=== PATIENT | male | born 1965 | race Caucasian/White ===

== ENCOUNTER 2019-01-26 12:56 | Inpatient (IN) ==
--- NOTE | 2019-01-26 16:12 | Emergency Department Note ---
Disposition Clinical Impression: Cellulitis, Osteomyelitis, Elevated serum creatinine Disposition: Admitted As Inpatient Condition: Fair Forms: ED Satisfaction Letter Time of Disposition: 17:11 Extremity Problem HPI - General Chief complaint: ED Extremity Problem,Nontraumatic Stated complaint: Right foot Ulcer Time Seen by Provider: 01/26/19 15:16 Source: patient Limitations: no limitations Nursing Notes Reviewed: Yes Vital Signs Reviewed: Yes - History of Present Illness Pain Scale: 7 - Related Data Previous Rx's Medication Instructions Recorded traMADol [Ultram] 50 mg PO Q8HR PRN #9 tablet 05/21/15 Allergies Allergy/AdvReac Type Severity Reaction Status Date / Time ciprofloxacin [From Cipro] Allergy See Verified 01/26/19 13:47 Comments pioglitazone [From Actos] AdvReac See Verified 01/26/19 13:47 Comments All systems ED: reviewed and negative except as stated. Review of Systems: As Per HPI Past Medical History - Past Medical History Medical history: Reports: diabetes Psychiatric history: Reports: no psych history - Social History Smoking Status: Former smoker Smokeless Tobacco Status: Yes Alcohol use: Reports: none Drug use: Reports: none Physical Exam - General Limitations: no limitations General appearance: alert, in no apparent distress Course Vital Signs Temperature 98.8 F 01/26/19 13:45 Pulse Rate 101 01/26/19 13:45 Respiratory Rate 16 01/26/19 13:45 Blood Pressure 137/86 01/26/19 13:45 O2 Sat by Pulse Oximetry 99 01/26/19 13:45 Temperature 98.8 F 01/26/19 13:47 Pulse Rate 101 01/26/19 13:47 Respiratory Rate 16 01/26/19 13:47 Blood Pressure 137/86 01/26/19 13:47 O2 Sat by Pulse Oximetry 99 01/26/19 13:47 Oxygen Delivery Oxygen Delivery Room Air Extremity Problem, Nontraumati - Lab Data Result diagrams: 01/26/19 16:10 01/26/19 16:10 Lab Results 01/26/19 01/26/19 01/26/19 Range/Units 16:10 16:10 16:10 WBC 9.3 (4.3-11.1) K/mcL RBC 4.73 (4.19-5.50) M/mcL Hgb 14.1 (12.9-16.9) g/dL Hct 42.3 (37.5-50.1) % MCV 89.4 (83.0-100.0) fL MCH 29.8 (28.0-33.3) pg MCHC 33.3 (31.6-35.5) g/dL RDW 12.4 (11.5-14.5) % Plt Count 382 (140-400) K/mcL MPV 10.5 (9.4-12.4) fL Immature Gran % 0.8 (0-4) % Seg Neutrophils % 69.9 % Lymphocytes % 11.7 % Monocytes % 15.5 % Eosinophils % 1.3 % Basophils % 0.8 % Neutrophils # 6.5 (1.6-8.9) K/mcL Lymphocytes # 1.1 (0.6-4.6) K/mcL Monocytes # 1.4 H (0.0-1.3) K/mcL Eosinophils # 0.1 (0.0-0.6) K/mcL Basophils # 0.1 (0.0-0.2) K/mcL ESR 48 H (0-10) mm/hr Sodium 136 (136-145) mEq/L Potassium 4.1 (3.5-5.1) mEq/L Chloride 100 (98-107) mEq/L Carbon Dioxide 26 (23-29) mEq/L BUN 33 H (6-20) mg/dL Creatinine 1.96 H (0.70-1.30) mg/dL Est GFR ( Amer) 44 L (> 60) Est GFR (Non-Af Amer) 36 L (> 60) BUN/Creatinine Ratio 17 (6-26) Glucose 151 H (70-105) mg/dL Calculated Osmolality 292 (280-300) Calcium 9.8 (8.6-10.3) mg/dL C-Reactive Protein 92 H (Less than 10) mg/L Attestation Statement - Attestation Attestation: I have seen this patient with the resident physician, I have personally evaluated this patient. I had reviewed the chart and document dictation by the resident physician and aM in agreement with the information documented by the resident physician. Please see documentation by the resident physician for complete chart including past medical history, family medical history, review of systems, current history and physical and laboratory and imaging studies. I was present for all procedures, provided direct supervision for all procedures, was present for the entirety of all procedures and provided direct guidance during the procedures. Please see documentation by the resident physician for any procedures performed. I have reviewed all interpretations of EKGs, and reviewed all EKGs performed on patient's as well. I have also reviewed reports of imaging as provided by radiology. Patient presented emergency department with chief complaint of increasing right great toe swelling redness and pain with walking. He states he has a chronic ulceration that has been managed by the wound clinic, but he has not seen him in about a month. He states he did miss one appointment with them. He states that he started noticing some redness of the right great toe and of his dorsum of his foot last week on he went to a urgent care, they placed him on doxycycline, he states he seemed to be doing okay and then over the last 24 hours he no significant increasing redness and swelling of the toe with increased pain with walking. He denies fevers or chills he is a diabetic he denies any changes in his blood sugar he denies nausea vomiting polyuria polydipsia. He denies headache neck pain chest pain shortness of breath dizziness or weakness. He denies any acute trauma he reports that he did get a new para shoes a few months ago which he thinks led to the ulceration but nothing new since that time. He denies any acute numbness or weakness but has chronic problems with neuropathy. Patient states he has already had his left great toe amputated for this same problem in the past. On physical examination he is alert oriented 3 and in no acute distress cranial nerves are grossly intact oropharynx is normal lungs are clear heart is regular no tachycardia ear canals are normal no evidence of malignant otitis externa. Abdomen soft nontender. Normal distal pulses in bilateral lower extremities. The right foot compared to the left foot is warm to the touch although there is no generalized pink discoloration there is a delineated area of redness specifically the entire right great toe is circumferentially erythematous, there is a superficial ulceration that almost appears like a plantar wart on the medial aspect of the plantar side, there is circumferential edema of the right great toe, no edema of the foot although the erythema does extend approximately 3 cm proximal to the toe itself over the medial portion of the foot extending to the third digit. There is no erythema of the second third fourth and fifth digits. The toe is mildly tender to palpation, it feels highly indurated, cannot rule out fluctuance but with palpation, I do not express any purulence from the ulceration site. There is no odor to it. There is some slight sloughing of the skin in between the toes that appears more like athlete's foot there is no nuchal ski sign, this is only of superficial portion. There is no evidence of gangrene or necrosis. There is no lymphangitis. Patient had laboratory studies ordered, and a CT of the foot ordered. He is already on doxycycline and has taken that this morning. We will reassess his foot after workup. He was offered pain medication which he declined. Patient's blood work showed no evidence of leukocytosis acute on chronic headache creatinine elevation of 1.96 up from his baseline, is given IV fluids for this elevated CRP at [address] scan showed no abscess but findings concerning for osteomyelitis of the great toe. Podiatry was contacted, patient has already been on doxycycline discussed antibiotic coverage she would like the patient initiated on clindamycin. The patient will be admitted to the hospital, for further management.
[2019-01-26 16:25] LABS: Basophils # 0.1 K/mcL (0.0-0.2); Basophils % 0.8 %; Eosinophils # 0.1 K/mcL (0.0-0.6); Eosinophils % 1.3 %; Hematocrit 42.3 % (37.5-50.1); Hemoglobin 14.1 g/dL (12.9-16.9); Immature Granulocytes % 0.8 % (0-4); Lymphocytes # 1.1 K/mcL (0.6-4.6); Lymphocytes % 11.7 %; Mean Corpuscular HGB Conc 33.3 g/dL (31.6-35.5); Mean Corpuscular Hemoglobin 29.8 pg (28.0-33.3); Mean Corpuscular Volume 89.4 fL (83.0-100.0); Mean Platelet Volume 10.5 fL (9.4-12.4); Monocytes # 1.4 K/mcL (0.0-1.3); Monocytes % 15.5 %; Neutrophils # 6.5 K/mcL (1.6-8.9); Platelet Count 382 K/mcL (140-400); Red Blood Count 4.73 M/mcL (4.19-5.50); Red Cell Distribution Width 12.4 % (11.5-14.5); Segmented Neutrophils % 69.9 %; White Blood Count 9.3 K/mcL (4.3-11.1)
--- NOTE | 2019-01-26 16:36 | Emergency Department Note ---
Disposition Clinical Impression: Cellulitis, Elevated serum creatinine Osteomyelitis Qualifiers: Osteomyelitis type: unspecified type Osteomyelitis location: foot Laterality: right Qualified Code(s): M86.9 - Osteomyelitis, unspecified Disposition: Admitted As Inpatient Condition: Fair Time of Disposition: 17:22 Extremity Problem HPI - General Chief complaint: ED Extremity Problem,Nontraumatic Stated complaint: Right foot Ulcer Time Seen by Provider: 01/26/19 15:16 Source: patient Mode of arrival: ambulatory Limitations: no limitations Nursing Notes Reviewed: Yes Vital Signs Reviewed: Yes - History of Present Illness HPI Narrative: 53M with PMHx of DM and left great toe amp patient presents emergency Department with right great toe infection. Patient states that he developed an ulcer from a blister several months ago on his right great toe and had been seen wound care and podiatry. The wound was initially healing but has gotten worse over the pa st several days. He has been taking doxycycline as an outpatient [facility] today to get checked quickly to look worse and they suggested he may need IV antibiotics. Patient states something similar to this happened when he had his left great toe amputated. He has no other complaints at this time. He denies fever, chills, abdominal pain, nausea and vomiting. He does have pain in the right great toe. Pain Scale: 7 - Related Data Home Medications Medication Instructions Recorded Confirmed BuPROPion SR (12 HR) [Wellbutrin 300 mg PO QAM 01/26/19 01/27/19 SR] Clopidogrel [Plavix] 75 mg PO DAILY 01/26/19 01/27/19 Gemfibrozil 600 mg PO DAILY 01/26/19 01/27/19 Insulin Glargine,Hum.rec.anlog 50 - 60 units SQ QPM 01/26/19 01/27/19 [Basaglar Kwikpen U-100] Losartan [Cozaar] 25 mg PO DAILY 01/26/19 01/27/19 Paroxetine [Paxil] 20 mg PO QAM 01/26/19 01/27/19 Ranitidine HCl [Zantac] 300 mg PO QPM 01/26/19 01/27/19 Rosuvastatin [Crestor] 40 mg PO HS 01/26/19 01/27/19 glyBURIDE [GlyBURIDE] 10 mg PO QAM 01/26/19 01/27/19 Cholecalciferol (Vitamin D3) 1,000 units PO DAILY 01/27/19 01/27/19 [Vitamin D3] Metformin HCl 1,000 mg PO QAM 01/27/19 01/27/19 Blossom-3/Dha/Epa/Fish Oil [Fish Oil 1,500 mg PO DAILY 01/27/19 01/27/19 500 mg Softgel] Previous Rx's Medication Instructions Recorded Doxycycline Hyclate 100 mg PO BID 15 Days #30 tab 01/29/19 Levofloxacin [Levaquin] 750 mg PO DAILY 15 Days #15 tablet 01/29/19 Allergies Allergy/AdvReac Type Severity Reaction Status Date / Time pioglitazone [From Actos] AdvReac See Verified 01/27/19 22:04 Comments All systems ED: reviewed and negative except as stated. Review of Systems: As Per HPI Constitutional: Denies: fever, chills, weakness Cardiovascular: Denies: chest pain, palpitations, dyspnea on exertion Respiratory: Denies: cough, dyspnea, wheezes Gastrointestinal: Denies: abdominal pain, nausea, vomiting Musculoskeletal: Reports: joint swelling (right great toe). Denies: back pain, neck pain Neurological: Denies: headache Endocrine: Denies: fatigue Past Medical History - Past Medical History Attestation: Yes The following information was validated with the patient. Source: patient Medical history: Reports: diabetes Psychiatric history: Reports: no psych history - Social History Smoking Status: Former smoker Smokeless Tobacco Status: Yes Alcohol use: Reports: none Drug use: Reports: none Physical Exam - General Limitations: no limitations General appearance: alert, in no apparent distress - Head Head exam: atraumatic, normocephalic - Eye Eye exam: Present: normal appearance, EOMI - Chest Chest inspection: Present: normal inspection. Absent: tenderness, rash - Respiratory Respiratory exam: Present: normal lung sounds bilaterally. Absent: wheezes - Cardiovascular Cardiovascular exam: Present: regular rate, normal rhythm - Abdominal Exam Abdominal exam: Present: soft, Non-Tender. Absent: distention, guarding, rebound, rigidity - Extremities Exam Extremities exam: Present: other (right great toe swelling with desquamation of tissue over the dorsal aspect. tenderness to palpation with healing ulcer on the medial plantar aspect. No crepitus. Erythema without significant streaking. ) - Neurological Exam Neurological exam: Present: alert, oriented X3 - Psychiatric Psychiatric exam: Present: normal affect, normal mood - Skin Skin exam: Present: warm, dry Course Vital Signs Temperature 98.8 F 01/26/19 13:45 Pulse Rate 101 01/26/19 13:45 Respiratory Rate 16 01/26/19 13:45 Blood Pressure 137/86 01/26/19 13:45 O2 Sat by Pulse Oximetry 99 01/26/19 13:45 Temperature 98.8 F 01/26/19 13:47 Pulse Rate 101 01/26/19 13:47 Respiratory Rate 16 01/26/19 13:47 Blood Pressure 137/86 01/26/19 13:47 O2 Sat by Pulse Oximetry 99 01/26/19 13:47 Oxygen Delivery Oxygen Delivery Room Air Extremity Problem, Nontraumati - MDM Narrative Medical decision making narrative: Patient presents with infection of his right great toe. We will obtain basic labs, ESR, CRP and a CT scan of the patient's foot looking for possible osteomyelitis. 1600 - as patient's lab work was significant for an elevated ESR and CRP. CT scan is suggestive of osteomyelitis and MRI of the foot is requested. We will consult podiatry for help with management of this patient and plan on admitting to the hospitalist. 1626 - Spoke with Dr. Stuart who is requesting the MRI as well as clindamycin. We will obtain these and call the hospitalist for admission. 1700 - Dr. Rivera has accepted the patient for admission. - Medical Records Medical records reviewed: Yes I reviewed the patient's medical records. - Lab Data Lab results reviewed: Yes I reviewed the patient's lab results. Result diagrams: 01/28/19 05:00 01/29/19 04:44 - Radiology Data Radiology results reviewed: Yes I reviewed the patient's radiology results. Attestation Statement - Attestation Attestation: I have seen this patient with the resident physician, I have personally evaluated this patient. I had reviewed the chart and document dictation by the resident physician and aM in agreement with the information documented by the resident physician. Please see documentation by the resident physician for complete chart including past medical history, family medical history, review of systems, current history and physical and laboratory and imaging studies. I was present for all procedures, provided direct supervision for all procedures, was present for the entirety of all procedures and provided direct guidance during the procedures. Please see documentation by the resident physician for any procedures performed. I have reviewed all interpretations of EKGs, and reviewed all EKGs performed on patient's as well. I have also reviewed reports of imaging as provided by radiology.
[2019-01-26 16:43] LABS: Calcium 9.8 mg/dL (8.6-10.3); Potassium 4.1 mEq/L (3.5-5.1)
[2019-01-26] MEDS ORDERED: Clindamycin 600 MG/50 ML 600 MG/50 ML IV.SOLN IVPB STA (16:48)
[2019-01-26] MEDS ORDERED: 0.9 % Sodium Chloride 1,000 ML IVC ONE (16:48)
[2019-01-26] MEDS ORDERED: Naloxone 0.4 MG/ML INJ IVP PRN (17:46)
--- NOTE | 2019-01-26 17:49 | Internal Med History&Physical ---
Date of Encounter: 01/26/19 Time of Encounter: 17:49 Internal Medicine - H&P: HPI Chief complaint: Right toe pain Admitted From: Home Plans for Post Hospital Care: Home History of present illness: Mr. Barth is a 53 year old male with a past medical history of diabetes and left toe amputation presented to the ER today with right toe pain and swelling of about 5 days' duration. Patient states that he has an ulcer on the plantar aspect of his right toe which has been present for about 2 months. He has been following with podiatry as outpatient for the management of the ulcer which discharging initially but stopped about a week ago. Patient states that shortly after he noticed his foot gradually swelling and becoming more painful. He went to urgent care and was given some antibiotics but has not seen any improvement in his condition. He admits fever and chills of about 2 days' duration. Past Med Surg Social Fam HX - Past Medical History Medical history: diabetes Additional medical history: Diabetes Psychiatric history: no psych history - Past Surgical History Additional surgical history: Left toe amputation - Social History Smoking Status: Former smoker Smokeless Tobacco Status: Yes Alcohol use: none Drug use: none - Additional Family History Additional family history: Reviewed and noncontributory Internal Medicine - H&P: Meds BuPROPion SR (12 HR) [Wellbutrin SR] 150 mg PO BID 01/26/19 [History] Clopidogrel [Plavix] 75 mg PO DAILY 01/26/19 [History] Doxycycline 100 mg PO BID 01/26/19 [History] Gemfibrozil 600 mg PO DAILY 01/26/19 [History] Insulin Glargine,Hum.rec.anlog [Basaglar Kwikpen U-100] 50 units SQ DAILY 01/26/19 [History] Losartan [Cozaar] 25 mg PO DAILY 01/26/19 [History] Metformin HCl [Fortamet] 1,000 mg PO DAILY 01/26/19 [History] Paroxetine [Paxil] 20 mg PO DAILY 01/26/19 [History] Ranitidine HCl [Zantac] 300 mg PO DAILY 01/26/19 [History] Rosuvastatin [Crestor] 40 mg PO HS 01/26/19 [History] glyBURIDE [GlyBURIDE] 10 mg PO DAILY 01/26/19 [History] Allergy/AdvReac Type Severity Reaction Status Date / Time ciprofloxacin [From Cipro] Allergy See Verified 01/26/19 17:35 Comments pioglitazone [From Actos] AdvReac See Verified 01/26/19 17:35 Comments All Systems PM: A 10-system review of systems was performed and is negative for pertinent find ings except as documented above in the HPI. Review of systems: GENERAL: Admits fever and chills HEENT: No rhinorrhea, No sore throat, No ear pain or discharge, No dysphagia or odynophagia PULMONARY: No cough, No chest pain, No Sputum production, No dyspnea on exertion CARDIOVASCULAR: No chest pain, no palpitations, No shortness of breath, No PND, No orthopnea GASTROINTESTINAL: No abdominal pain, No nausea, No vomiting, No constipation, No diarrhea, No hematemesis, No hematochezia MUSKULOSKELETAL: Pain in right foot INTEGUMENTARY: No new skin lesions NERVOUS SYSTEM: No Dizziness, No weakness, No slurred speech, No diplopia or blurred/ loss vision, No numbness, No tinglng sensation. - Constitutional Vitals: Temp Pulse Resp BP Pulse Ox 37.1 C 101 16 137/86 99 01/26/19 13:47 01/26/19 13:47 01/26/19 13:47 01/26/19 13:47 01/26/19 13:47 Exam: GENERAL: Not in distress. Alert and Oriented HEENT: EOMI, PERRLA MOUTH: Moist oral mucosa NECK:No JVD, No lymph nodes. CHEST AND LUNGS: Normal breath sounds, no wheezes or crackles HEART: S1 and S2 normal, no murmurs ABDOMEN: Soft, nontender, no organomegaly SKIN: Normal color, no rashes, no lesions EXTREMITIES: Left toe stump is clean, right toe is markedly swollen, red, fluctuant and tender. Ulcer on plantar aspect of right toe is dry and not discharging. NEUROLOGICAL: Normal cognition, normal motor and sensory exam. Internal Med - H&P Results - Labs CBC & Chem 7: 01/26/19 16:10 01/26/19 16:10 Labs: Short CBC 01/26/19 Range/Units 16:10 WBC 9.3 (4.3-11.1) K/mcL Hgb 14.1 (12.9-16.9) g/dL Hct 42.3 (37.5-50.1) % Plt Count 382 (140-400) K/mcL Neutrophils # 6.5 (1.6-8.9) K/mcL BMP 01/26/19 16:10 Sodium 136 Potassium 4.1 Chloride 100 Carbon Dioxide 26 BUN 33 H Creatinine 1.96 H Glucose 151 H Calcium 9.8 - Impressions ITS Impressions Foot CT 01/26/19 16:19 IMPRESSION: 1. Suspected erosive changes along the plantar aspect of the 1st digit possibly representing osteomyelitis. Consider further evaluation with MRI. 2. Shallow soft tissue ulceration along the plantar medial aspect of the 1st digit with 1st digit cellulitis. No definite drainable fluid collection or sinus tract. D/ / Maynor Farias MD / Maynor Farias MD Interpreting Provider: Maynor Farias MD - Assessment and Plan (1) Toe osteomyelitis, right Current Visit: Yes Status: Acute Assessment and plan: Patient witn DM2 and a right hallux ulcer of abut 2 months duration. Right toe has become more swollen and painful in last 5 days with fever and chills CT shows erosive changes on plantar aspect of hallux suspicious for osteommyelitis MRI ordered Renal dosing of antibiotics sice he has CKD 3B Will start on Vanc and Cefepime. Podiatry, ID and Nephro consult (2) Cellulitis of right toe Current Visit: Yes Status: Acute Assessment and plan: Possible OM of right hallux with red, tender and warm surrounding soft tissue. Antibiotics as above (3) Acute kidney injury superimposed on chronic kidney disease Current Visit: Yes Status: Acute Assessment and plan: Creatinine currently elevated at 1.96 Review of patient's previous labs reveals likely CKD3b We will give gentle hydration Consult nephrology Monitor (4) Diabetes mellitus Current Visit: Yes Status: Chronic Assessment and plan: Accuchecks Sliding scale Will cover with home basal insulin dose. Qualifiers: Diabetes mellitus type: type 2 Diabetes mellitus jail insulin use: without exterminator helper use Diabetes mellitus complication status: with skin complications Diabetes mellitus complication detail: with foot ulcer Qualified Code(s): E11.621 - Type 2 diabetes mellitus with foot ulcer; L97.509 - Non-pressure chronic ulcer of other part of unspecified foot with unspecified severity (5) DVT prophylaxis Current Visit: Yes Status: Acute Assessment and plan: Subcutaneous heparin - Time Spent With Patient Total time spent is greater than 50% in coordination of care (as documented) at patient's floor/unit and/or counseling patient:
[2019-01-26] MEDS ORDERED: *HR* Dextrose 50 % in Water (Syg) 50 ML SYRINGE IVP PRN (18:09)
[2019-01-26] MEDS ORDERED: D5% in Water 1,000 ML IVC PRN (18:09)
[2019-01-26] MEDS ORDERED: Dextrose Gel 15 GM/37.5 ML TUBE PO PRN ×2 (18:09)
[2019-01-26] MEDS: Cefepime HCl 2,000 MG in Water for inj. (sterile) 20 ML IVP SCH ×2 (18:59→20:12)
[2019-01-26] MEDS: *HR* Heparin 5,000 UNIT/ML VIAL SQ SCH (20:13)
[2019-01-26] MEDS: BuPROPion SR (12 HR) 150 MG TABLET PO SCH (20:37)
[2019-01-27] MEDS: *HR* Heparin 5,000 UNIT/ML VIAL SQ SCH ×3 (04:45→21:06)
[2019-01-27] MEDS: Cefepime HCl 2,000 MG in Water for inj. (sterile) 20 ML IVP SCH ×2 (04:51→17:36)
[2019-01-27 05:36] LABS: Basophils # 0.1 K/mcL (0.0-0.2); Basophils % 0.7 %; Eosinophils # 0.2 K/mcL (0.0-0.6); Eosinophils % 1.9 %; Hematocrit 40.3 % (37.5-50.1); Hemoglobin 13.4 g/dL (12.9-16.9); Lymphocytes # 1.4 K/mcL (0.6-4.6); Lymphocytes % 13.5 %; Mean Corpuscular HGB Conc 33.3 g/dL (31.6-35.5); Mean Corpuscular Hemoglobin 29.6 pg (28.0-33.3); Mean Platelet Volume 10.5 fL (9.4-12.4); Monocytes # 1.7 K/mcL (0.0-1.3); Monocytes % 16.9 %; Neutrophils # 6.7 K/mcL (1.6-8.9); Platelet Count 364 K/mcL (140-400); Red Blood Count 4.53 M/mcL (4.19-5.50); Red Cell Distribution Width 12.4 % (11.5-14.5); White Blood Count 10.1 K/mcL (4.3-11.1)
[2019-01-27 05:53] LABS: Calcium 9.2 mg/dL (8.6-10.3); Potassium 4.3 mEq/L (3.5-5.1)
[2019-01-27] MEDS: Insulin LISPRO 300 UNITS/3 ML VIAL SQ SCH ×3 (08:47→17:17)
[2019-01-27] MEDS ORDERED: Insulin DETEMIR 100 UNIT/ML X5UNITS SQ SCH (09:00)
[2019-01-27] MEDS ORDERED: NON-FORMULARY MEDICATION 1 EACH EACH (Insulin Glargine,Hum.Rec.Anlog [Basaglar Kwikpen U-1 SQ SCH (09:00)
[2019-01-27] MEDS ORDERED: Famotidine 20 MG TABLET PO SCH (09:00)
[2019-01-27] MEDS: BuPROPion SR (12 HR) 150 MG TABLET PO SCH ×2 (09:00→21:06)
--- NOTE | 2019-01-27 09:48 | Nephrology Consult Note ---
<Lawrence Fishman N - Last Filed: 01/27/19 13:55> Date of Encounter: 01/27/19 Time of Encounter: 09:44 Assessment and Plan (1) Acute kidney injury superimposed on chronic kidney disease Status: Acute On patient's previous admissions he has had a diminished GFR ranging from 40-48. Patient denies having a internal security manager that he follows GFR is slightly reduced from previous admission in 2018 now down to 33 Creatinine/BUN of 2.13 and 38 Diminished renal function could be teleservices representative of progression of underlying CKD since last visit versus Acute on chronic Kidney failure -UA ordered -spot protein/creatinine ratio urine -LEANNE, complements C3 and C4 -Electrophoresis serum and urine -renal dosing of medications -avoid nephrotoxins -Encourage oral intake and renal diet once no longer NPO following surgery (2) Osteomyelitis Status: Acute Podiatry has seen patient and plans for surgery this afternoon Qualifiers: Osteomyelitis type: unspecified type Osteomyelitis location: foot Laterality: right Qualified Code(s): M86.9 - Osteomyelitis, unspecified (3) Diabetes mellitus Status: Chronic Defer to primary team Qualifiers: Diabetes mellitus type: type 2 Diabetes mellitus terminal carman insulin use: without terminal carman use Diabetes mellitus complication status: with skin complications Diabetes mellitus complication detail: with foot ulcer Qualified Code(s): E11.621 - Type 2 diabetes mellitus with foot ulcer; L97.509 - Non-pressure chronic ulcer of other part of unspecified foot with unspecified severity History of Present Illness - Reason for Consult Consult date: 01/27/19 Chronic Kidney Disease - History of Present Illness 53M with significant PMH of diabetes and left great toe amputation presents to the ED complaining of right toe pain and swelling for 5 days prior to arrival. Patient has had a ulceration on this foot for the past couple months which has been managed by podiatry outpatient, but over the past few days the toe has been swelling and became much more painful. Patient also complains of fever and chills. The patient's labs significant for a CRP of 92, ESR 48, and white count of 9.3. On admission creatinine/BUN of 1.96 and 33 something with a GFR of 36 and which are now 2.13 and 38 with GFR of 33. These appear to be worse than patient's baseline on previous admissions with GFR ranging from 40-50. Patient has been seen by podiatry who planned for surgery this afternoon. Past Med Surg Social Fam HX - Past Medical History Medical history: diabetes, hyperlipidemia, hypertension Additional medical history: Diabetes Psychiatric history: no psych history - Past Surgical History Additional surgical history: Left toe amputation - Social History Smoking Status: Former smoker Smokeless Tobacco Status: Yes Alcohol use: none Drug use: none - Family History Mother Living Status: Still Living Hx Family Cancer: Yes Hx Family Endocrine Disorder: Yes Father Living Status: Still Living Hx Family Cardiac Disorders: Yes Medications and Allergies BuPROPion SR (12 HR) [Wellbutrin SR] 300 mg PO QAM 01/26/19 [History] Clopidogrel [Plavix] 75 mg PO DAILY 01/26/19 [History] Gemfibrozil 600 mg PO DAILY 01/26/19 [History] Insulin Glargine,Hum.rec.anlog [Basaglar Kwikpen U-100] 50 - 60 units SQ QPM 01/26/19 [History] Losartan [Cozaar] 25 mg PO DAILY 01/26/19 [History] Paroxetine [Paxil] 20 mg PO QAM 01/26/19 [History] Ranitidine HCl [Zantac] 300 mg PO QPM 01/26/19 [History] Rosuvastatin [Crestor] 40 mg PO HS 01/26/19 [History] glyBURIDE [GlyBURIDE] 10 mg PO QAM 01/26/19 [History] Cholecalciferol (Vitamin D3) [Vitamin D3] 1,000 units PO DAILY 01/27/19 [History] Metformin HCl 1,000 mg PO QAM 01/27/19 [History] [place]-3/Dha/Epa/Fish Oil [Fish Oil 500 mg Softgel] 1,500 mg PO DAILY 01/27/19 [History] Doxycycline Hyclate 100 mg PO BID 15 Days #30 tab 01/29/19 [Rx] Levofloxacin [Levaquin] 750 mg PO DAILY 15 Days #15 tablet 01/29/19 [Rx] Allergy/AdvReac Type Severity Reaction Status Date / Time pioglitazone [From Actos] AdvReac See Verified 01/27/19 22:04 Comments Review of Systems Constitutional: chills, fever(s), no fatigue Nose, mouth and throat: no dizziness, no headache(s) Cardiovascular: no chest pain, no dyspnea, no irregular heart rhythm, no leg edema, no palpitations Respiratory: no cough, no dyspnea Gastrointestinal: no abdominal pain, no constipation, no diarrhea, no nausea, no vomiting Genitourinary Male: no flank pain, no hematuria, no penile discharge Musculoskeletal: no back pain, no numbness Integumentary: skin ulcer, wounds Neurological: no headache(s), no loss of vision Psychiatric: no anxiety, no confusion Endocrine: no fatigue, no palpitations, no polyuria Hematologic/Lymphatic: no easy bleeding, no easy bruising Exam - Vital Signs Vital signs: Initial Vital Signs Temp Pulse Resp BP Pulse Ox 98.8 F 101 16 137/86 99 01/26/19 13:45 01/26/19 13:45 01/26/19 13:45 01/26/19 13:45 01/26/19 13:45 Vital Signs - Last 8 Hours Temp Pulse Resp BP Pulse Ox 01/27/19 08:58 129/76 01/27/19 02:58 98.8 F 85 14 106/73 96 Intake and Output 01/26/19 01/27/19 01/27/19 23:59 07:59 15:59 Intake Total 20 / 20 20 / 20 Balance 20 / 20 20 / 20 Intake: IV Fluids 20 / 20 20 / 20 Maxipime 2,000 MG In Water for 20 / 20 20 / 20 inj. (sterile) 20 ML @ 300 mls/ hr IVP Q12HR [facility] Rx#:[id number] Other: Blood Glucose* 113 216 - General Appearance General appearance: well-developed (No acute distress) EENT: mucous membranes moist, hearing intact Neck: no JVD (No evidence of adenopathy) Respiratory: clear Cardiology: no edema, regular rate, normal S1, normal S2 Gastrointestinal: normoactive bowel sounds, no tenderness, no guarding Integumentary: no rash, warm and dry Neurologic: no focal deficit, alert and oriented x3 Musculoskeletal: warmth Additional Comments: Right foot currently with wrapping due to right toe ulceration. Left foot with great toe amputation. Psychiatric: mood/affect appropriate, cooperative Results - Lab Results 01/27/19 05:13 01/27/19 05:13 Most recent lab results 01/27/19 05:13 Calcium 9.2 Consult Discharge Plan - Plan Additional Instructions: Follow up with Dr. Florencio Stuart 1 week after discharge. WBAT in orthowedge surgical shoe. Dressing to remain intact until follow up appointment. Referrals: Florencio Stuart DPM [Partnered Physician] - 02/05/19 8:30 am Odalis Monroe CNP [Primary Care Provider] - 03/03/19 8:00 am Prescriptions: Doxycycline Hyclate 100 mg PO BID 15 Days #30 tab Transmission Status: Received by [facility] Levofloxacin [Levaquin] 750 mg PO DAILY 15 Days #15 tablet Transmission Status: Received by [facility] <LalitorolandaErin Dsouza - Last Filed: 02/08/19 02:34> Date of Encounter: 01/27/19 Exam - Vital Signs Vital signs: Initial Vital Signs Temp Pulse Resp BP Pulse Ox 98.8 F 101 16 137/86 99 01/26/19 13:45 01/26/19 13:45 01/26/19 13:45 01/26/19 13:45 01/26/19 13:45 Results - Lab Results 01/28/19 05:00 01/29/19 04:44 - Attending Attestation I examined this patient and my medical decision-making was reviewed with the Resident Physician/POWER HAMMER OPERATOR. I agree with the documented findings, disposition and treatment plan as described except to the extent set forth below. In brief; 53 y o male with PMH of DM admitted with rig great toe pain and swelling. Renal consulted for elevated SCr. On exam: Gen: NAD, lungs clear, heart S1S2, abd soft NTND, Ext no LE edema bilat, R foot with dressing and neuro AAOx3. ARACELI on CKD. Workup as above. Avoid nephrotoxins if possible. Po fluids advised.
--- NOTE | 2019-01-27 11:47 | Podiatry Consult Note ---
Date of Encounter: 01/27/19 Time of Encounter: 09:40 Assessment and Plan (1) Toe osteomyelitis, right Current visit: Yes Status: Acute Assessment: -Erythema and edema right hallux -Ulcer plantar medial aspect with purulent drainage noted -Erythema noted to dorsal forefoot, no lymphangitis -Dry flaking skin noted -WBC 9.3 -ESR 48, CRP 92 -CT of right foot shows evidence of erosive changes plantar aspect of the 1st digit concerning for osteomyelitis with soft tissue ulceration along the plantar medical aspect of the 1st digit and 1st digit cellulitils. No definite drainable fluid collection or sinus tract. -MRI of right foot showed evidence of osteomyelitis through the 1st proximal and distal phalanges, shallow soft tissue ulceration plantar and medical to the 1st interphalangeal joint with an underlying fluid-filled sinus tract contacting the adjacent osseous structures, and separate abscess versus phelgmon in the soft tissues dorsal and medial to the 1st interphalangeal joint. Plan: -OR today with Dr. Stuart for I&D, possible amputation -Nature of the procedure, risks versus benefits, potential complications, consequences of surgery, and condition discussed. All questions and concerns addressed. Patient asked to proceed with right toe amputation instead of I&D and Dr. Stuart made aware. Consent signed and placed in chart. -Remain NPO -Will continue to monitor -Hgb A1c -Right great toe flushed with sterile .9 and pat dry. Painted area with betadine and covered with 4x4's and Kerlix. Secured with medipore tape. History of Present Illness HPI: Mr. Barth is a 53 year old male admitted to the hospital yesterday for right first toe infection and osteomyelitis. Patient does have a past medical history of diabetes and amputation of left hallux. Patient reports for the the last two months he has been following with Dr. Salinas for an ulcer to his right hallux. He missed his last appointment and reports he started developing redness and swelling to the right toe. Patient reports 5 days ago the redness and swelling increased and he went to Urgent Care and was given antibiotics. He reports pain with pressure. A CBC revealed a WBC of 9.3, ESR 48, CRP 92. He has been afebrile since admission and hemodynamically stable. He is unsure of any fever, does reports chills earlier this week and denies any nausea, vomiting, or diarrhea. Patient denies any chest pain, shortness of breath, or calf pain. Patient denies tobacco, alcohol, or illicit drug use. Last Hgb A1c was 11.1 on 04/07/2018. Past Med Surg Social Fam HX - Past Medical History Medical history: diabetes, hyperlipidemia, hypertension Additional medical history: Diabetes Psychiatric history: no psych history - Past Surgical History Additional surgical history: Left toe amputation - Social History Smoking Status: Former smoker Smokeless Tobacco Status: Yes Alcohol use: none Drug use: none - Family History Mother Living Status: Still Living Hx Family Cancer: Yes Hx Family Endocrine Disorder: Yes Father Living Status: Still Living Hx Family Cardiac Disorders: Yes Medications and Allergies BuPROPion SR (12 HR) [Wellbutrin SR] 150 mg PO BID 01/26/19 [History] Clopidogrel [Plavix] 75 mg PO DAILY 01/26/19 [History] Doxycycline 100 mg PO BID 01/26/19 [History] Gemfibrozil 600 mg PO DAILY 01/26/19 [History] Insulin Glargine,Hum.rec.anlog [Basaglar Kwikpen U-100] 50 units SQ DAILY 01/26/19 [History] Losartan [Cozaar] 25 mg PO DAILY 01/26/19 [History] Metformin HCl [Fortamet] 1,000 mg PO DAILY 01/26/19 [History] Paroxetine [Paxil] 20 mg PO DAILY 01/26/19 [History] Ranitidine HCl [Zantac] 300 mg PO DAILY 01/26/19 [History] Rosuvastatin [Crestor] 40 mg PO HS 01/26/19 [History] glyBURIDE [GlyBURIDE] 10 mg PO DAILY 01/26/19 [History] Allergy/AdvReac Type Severity Reaction Status Date / Time ciprofloxacin [From Cipro] Allergy See Verified 01/26/19 17:35 Comments pioglitazone [From Actos] AdvReac See Verified 01/26/19 17:35 Comments All Systems Reviewed: The remainder of the systems were reviewed and are negative - Constitutional Additional comments: As per HPI - Cardiovascular Cardiovascular: no chest pain - Respiratory Respiratory: no dyspnea Physical Exam - Constitutional Vitals: Temp Pulse Resp BP Pulse Ox 98.1 F 90 16 114/69 94 01/27/19 10:46 01/27/19 10:46 01/27/19 10:46 01/27/19 10:46 01/27/19 10:46 Exam: Constitutional: Alert and oriented x 3, no acute distress noted, well nourished Vascular: 2/4 PT/DP pulses bilateral extremities, cap refill less than 3 seconds to all digits, amputation of left hallux, no pain with calf squeeze Neurological: Diminished protective sensation Dermatological: Erythema and edema right hallux, ulcer plantar medial aspect with purulent drainage noted, erythema noted to dorsal forefoot, no lymphangitis, and dry flaking skin noted, fluctuance noted Musculoskeletal: 09/06 muscle strength and normal muscle tone Results - Labs Result Diagrams: 01/27/19 05:13 01/27/19 05:13 Labs: Abnormal lab results Monocytes # 1.7 K/mcL (0.0-1.3) H 01/27/19 05:13 ESR 48 mm/hr (0-10) H 01/26/19 16:10 Sodium 135 mEq/L (136-145) L 01/27/19 05:13 BUN 38 mg/dL (6-20) H 01/27/19 05:13 Creatinine 2.13 mg/dL (0.70-1.30) H 01/27/19 05:13 Est GFR ( Amer) 40 (> 60) L 01/27/19 05:13 Est GFR (Non-Af Amer) 33 (> 60) L 01/27/19 05:13 Glucose 230 mg/dL (70-105) H 01/27/19 05:13 POC Glucose 113 mg/dL (70-99) H 01/26/19 20:22 C-Reactive Protein 92 mg/L (Less than 10) H 01/26/19 16:10 H & H 01/26/19 01/27/19 Range/Units 16:10 05:13 Hgb 14.1 13.4 (12.9-16.9) g/dL Hct 42.3 40.3 (37.5-50.1) % All other labs normal. Consult Discharge Plan - Plan Referrals: Odalis Monroe, PAPIER MACHE MOLDER [Primary Care Provider] -
--- NOTE | 2019-01-27 12:32 | Internal Med Progress Note ---
Hospitalist Progress Note - Encounter Date of Encounter: 01/27/19 Time of Encounter: 12:28 - Subjective Interval History: Patient was seen and examined at bedside today. Patient reports right great toe swelling for 5 days. Patient reports of ulcer at the base of the right great toe for possible months. Denies any pain at rest. Reports pain only while walking. Denies any fever and chills. - Exam Vitals: Temp Pulse Resp BP Pulse Ox 98.1 F 90 16 114/69 94 01/27/19 10:46 01/27/19 10:46 01/27/19 10:46 01/27/19 10:46 01/27/19 10:46 Exam: GENERAL: Not in distress. Alert and Oriented HEENT: EOMI, PERRLA MOUTH: Moist oral mucosa NECK:No JVD, No lymph nodes. CHEST AND LUNGS: Normal breath sounds, no wheezes or crackles HEART: S1 and S2 normal, no murmurs ABDOMEN: Soft, nontender, no organomegaly SKIN: Normal color, no rashes, no lesions EXTREMITIES: Left toe stump is clean, right toe is markedly swollen, red, fluctuant and tender. Ulcer on plantar aspect of right toe is dry and not discharging. NEUROLOGICAL: Normal cognition, normal motor and sensory exam. - Assessment and Plan (1) Toe osteomyelitis, right Current Visit: Yes Status: Acute Assessment and Plan: Patient witn DM2 and a right hallux ulcer of abut [address] shows erosive changes on plantar aspect of hallux suspicious for osteommyelitis MRI ordered which showed osteomyelitis of right hallux Continue IV hydration Continue IV cefepime. Podiatry and Nephro consult (2) Cellulitis of right toe Current Visit: Yes Status: Acute Assessment and Plan: Antibiotics as above (3) Acute kidney injury superimposed on chronic kidney disease Current Visit: Yes Status: Acute Assessment and Plan: Creatinine currently elevated at 1.96 and trended up to 2.13. Nephrology on consult. Will monitor and continue IV hydration (4) Diabetes mellitus Current Visit: Yes Status: Chronic Assessment and Plan: Accuchecks Sliding scale Will cover with home basal insulin dose. (5) DVT prophylaxis Current Visit: Yes Status: Acute Assessment and Plan: Subcutaneous heparin - Time Spent with Patient Total time spent is greater than 50% in coordination of care (as documented) at patient's floor/unit and/or counseling patient: 25 - 35 minutes Plan of Care Discussed with: patient Internal Medicine: Result - Labs CBC & Chem 7: 01/27/19 05:13 01/27/19 05:13 Labs: Short CBC 01/26/19 01/27/19 Range/Units 16:10 05:13 WBC 9.3 10.1 (4.3-11.1) K/mcL Hgb 14.1 13.4 (12.9-16.9) g/dL Hct 42.3 40.3 (37.5-50.1) % Plt Count 382 364 (140-400) K/mcL Neutrophils # 6.5 6.7 (1.6-8.9) K/mcL BMP 01/26/19 01/27/19 16:10 05:13 Sodium 136 135 L Potassium 4.1 4.3 Chloride 100 99 Carbon Dioxide 26 27 BUN 33 H 38 H Creatinine 1.96 H 2.13 H Glucose 151 H 230 H Calcium 9.8 9.2 - Impressions Impressions Foot CT 01/26/19 16:19 IMPRESSION: 1. Suspected erosive changes along the plantar aspect of the 1st digit possibly representing osteomyelitis. Consider further evaluation with MRI. 2. Shallow soft tissue ulceration along the plantar medial aspect of the 1st digit with 1st digit cellulitis. No definite drainable fluid collection or sinus tract. D/ / Maynor Farias MD / Maynor Farias MD Interpreting Provider: Maynor Farias MD Foot MRI 01/26/19 20:11 IMPRESSION: 1. Osteomyelitis throughout the 1st proximal and distal phalanges. 2. Shallow soft tissue ulceration plantar and medial to the 1st interphalangeal joint with an underlying fluid-filled sinus tract contacting the adjacent osseous structures. 3. Separate 14 x 12 x 12 mm abscess versus phlegmon in the soft tissues dorsal and medial to the 1st interphalangeal joint. D/ / Maynor Farias MD / Maynor Farias MD Interpreting Provider: Maynor Farias MD Consult Discharge Plan - Plan Referrals: Odalis Monroe, PARTS ROOM ASSISTANT [Primary Care Provider] - (4) Diabetes mellitus Qualifiers: Diabetes mellitus type: type 2 Diabetes mellitus extermination supervisor insulin use: without extermination supervisor use Diabetes mellitus complication status: with skin complications Diabetes mellitus complication detail: with foot ulcer Qualified Code(s): E11.621 - Type 2 diabetes mellitus with foot ulcer; L97.509 - Non-pres sure chronic ulcer of other part of unspecified foot with unspecified severity
[2019-01-27] MEDS ORDERED: 0.9 % Sodium Chloride 1,000 ML IVC SCH (12:45)
[2019-01-27 14:43] LABS: Complement C3 181 mg/dL (87-200)
[2019-01-27 15:53] LABS: Estimated Average Glucose 197 mg/dl
--- NOTE | 2019-01-27 16:04 | Anesthesia Evaluation PreOp ---
Date of Encounter: 01/27/19 Time of Encounter: 16:02 - Past History Planned Operation: R-foot I&D. Bone Bx. Possible Amp Pulmonary History: Former smoker, Smoker (+ chewing tobacco), JOSE Dx (likely) Other Medical History: Renal (Acute on Chronic Kidney Dz), Diabetes Type II, Other (Admitted 01/26/2019 re: R-toe cellulitis) Anesthesia History: Past Anesthesia (L-toe amputaion) Alcohol Use: none Drug use: none Medications and Allergies BuPROPion SR (12 HR) [Wellbutrin SR] 150 mg PO BID 01/26/19 [History] Clopidogrel [Plavix] 75 mg PO DAILY 01/26/19 [History] Doxycycline 100 mg PO BID 01/26/19 [History] Gemfibrozil 600 mg PO DAILY 01/26/19 [History] Insulin Glargine,Hum.rec.anlog [Basaglar Kwikpen U-100] 50 units SQ DAILY [History] Losartan [Cozaar] 25 mg PO DAILY 01/26/19 [History] Metformin HCl [Fortamet] 1,000 mg PO DAILY 01/26/19 [History] Paroxetine [Paxil] 20 mg PO DAILY 01/26/19 [History] Ranitidine HCl [Zantac] 300 mg PO DAILY 01/26/19 [History] Rosuvastatin [Crestor] 40 mg PO HS 01/26/19 [History] glyBURIDE [GlyBURIDE] 10 mg PO DAILY 01/26/19 [History] Allergy/AdvReac Type Severity Reaction Status Date / Time ciprofloxacin [From Cipro] Allergy See Verified 01/26/19 17:35 Comments pioglitazone [From Actos] AdvReac See Verified 01/26/19 17:35 Comments - Meds/Allergy Pre-op Review Medications Reviewed: Yes Allergies Reviewed: Yes Beta Blockers on Current Med List: No Anesthesia Results - Labs 01/27/19 05:13 01/27/19 05:13 Laboratory Tests 01/27/19 01/27/19 05:13 05:13 Est GFR (Non-Af Amer) 33 L Est Mean Plasma Glucose 197 Hemoglobin A1c 8.5 H Anesthesia Exam Vital Signs Temp Pulse Resp BP Pulse Ox 01/27/19 14:00 98 F 86 18 117/68 96 01/27/19 10:46 98.1 F 90 16 114/69 94 01/27/19 08:58 129/76 01/27/19 06:25 98 F 87 16 121/74 95 01/27/19 02:58 98.8 F 85 14 106/73 96 01/26/19 18:02 91 16 145/84 97 Intake and Output 01/27/19 01/27/19 01/27/19 07:59 15:59 23:59 Intake Total Balance Intake: IV Fluids Maxipime 2,000 MG In Water for inj. (sterile) 20 ML @ 300 mls/ hr IVP Q12HR [facility] Rx#:[id number] Other: Blood Glucose* 183 Height: 5'8" Weight: 225# BMI = 34.2 NPO (# of Hours): MNoc - HEENT Pupil (Motor): Pupils equal, EOMI Mallampati: II Teeth: Normal Oral Opening: Greater than 3 - DIRECTOR OF RESEARCH AND DEVELOPMENT LOC: Oriented DIRECTOR OF RESEARCH AND DEVELOPMENT Motor: Normal RUE, Normal LUE, Normal RLE, Normal LLE, Normal Face DIRECTOR OF RESEARCH AND DEVELOPMENT Sensory: Normal: RUE, LUE, RLE, LLE, Face - Cardiac Rhythm: Regular Murmur: None - Pulmonary Breath Sounds: bilateral Clear Respiratory Effort: Symmetrical Anesthesia Assess/Plan ASA Score: 3 (DM, HTN, Chol, Obesity) Level of consciousness: Cooperative, Oriented, Tranquil Anesthetic Plan: General Recovery Plan: PACU
[2019-01-27 17:38] LABS: Bilirubin,Urine Negative (Negative); Blood,Urine Negative (Negative); Clarity,Urine Clear (Clear); Color,Urine Yellow (Yellow); Glucose,Urine (UA) Normal (Normal); Ketones,Urine Negative (Negative); Leukocyte Esterase,Urine Negative (Negative); Nitrite,Urine Negative (Negative); PH,Urine 5.5 pH Units (5.0-8.0); Protein,Urine 100 mg/dL (Neg-Trace); Specific Gravity,Urine 1.025 (1.010-1.025); Urobilinogen,Urine Normal (Normal)
[2019-01-27 17:40] LABS: Bacteria,Urine None Seen per hpf (None-Few); Hyaline Casts,Urine None Seen per lpf (None-Few); RBC,Urine 0-3 per hpf (0-3); Squamous Epithelial Cell,Urine Many per lpf (None-Few); WBC,Urine 0-3 per hpf (0-3)
[2019-01-27 17:43] LABS: Protein/Creatinine Ratio,Urine 1.26 mg/mg (0.00-0.20)
[2019-01-27] MEDS ORDERED: *HR* Midazolam HCl 2 MG/2 ML VIAL ONE (18:10)
[2019-01-27] MEDS ORDERED: *HR* FentaNYL (PF) 100 MCG/2 ML VIAL ONE (18:11)
[2019-01-27] MEDS ORDERED: Propofol 500 MG/50 ML INFUS..BTL ONE (18:11)
[2019-01-27] MEDS ORDERED: Clindamycin 900 MG/50 ML 0 MG/0 ML IV.SOLN IVPB ONE (18:24)
[2019-01-27] MEDS ORDERED: Lidocaine 1% 20 ML MDV ONE (18:43)
[2019-01-27] MEDS ORDERED: Lidocaine -MPF 2% 2 ML VIAL ONE (18:55)
[2019-01-27] MEDS ORDERED: *HR* Dextrose 50 % in Water (Syg) 50 ML SYRINGE ONE (18:58)
--- NOTE | 2019-01-27 19:25 | Orthopedic Operative Note ---
Date of procedure: 01/27/19 Pre-op diagnosis: Right 1st toe abscess, cellulitis, osteomyelitis Post-op diagnosis: same Procedure: 01/27/19 19:24 1. Right 1st toe incision and drainage below fascia 2. Right 1st toe amputation at metatarsophalangeal joint Implants: None Complications: None Anesthesia: MAC, local Surgeon: Florencio Stuart Was there an asset protection assistant present: No Estimated blood loss (cc): 1 Specimen: right 1st toe to pathology Condition: stable Disposition: floor Procedure in Detail: 01/28/19 06:35 INDICATIONS AND CONSENT Mr. Barth is a 53 year old male with a history of a chronic right first toe ul cer that was being treated with local wound care. He then developed an acute infection with abscess formation of the toe and cellulitis. CT scan and MRI showed evidence of abscess and osteomyelitis of the right proximal and distal phalanx of the first toe. We discussed surgical treatment options including incision and drainage with bone culture and course of IV antibiotics versus amputation of the toe. Due to concern for course of IV antibiotics and need for possible surgical intervention the future, the patient elected to proceed with amputation of the toe. We discussed the above procedures in detail. This included a discussion on the indications, contraindications, and possible complications including but not limited to: infection, non-healing wound, pain, swelling, bleeding, blood clots, heart complications, nerve injury, tendon injury, vascular injury, loss of limb, loss of life, and need for further surgery. We also reviewed the expected post operative course, including a di scussion on the partial-weightbearing status after this procedure. He related understanding of our discussion regarding this surgery. All questions were answered to his satisfaction, and a proper written informed consent was obtained, signed, and placed in the chart. No guarantees were given, stated or implied, as to the outcome of this procedure. PROCEDURE IN DETAIL The patient was seen in the pre-operative holding area by Anesthesia, where he was consented for MAC with local block. The patient was then brought back to the operative suite and placed on the operating room table in the supine position. A sign-in was performed. MAC was then initiated per Anesthesia protocol. A well- padded pneumatic right ankle tourniquet was then placed. Next, the right lower leg was scrubbed, prepped, and draped in the usual aseptic manner. A [place] Time-Out was performed, and all parties in the room agreed. Next, an Esmarch was used to exsanguinate the right foot. The pneumatic thigh tourniquet was inflated to 250 mmHg. A total of 5 mL of 1% lidocaine plain and 5 mL of 0.5% Marcaine plain were used to perform a Sepulveda block of the right first ray. A 15 blade was used to perform a linear incision at the dorsal aspect of the toe at the level of the abscess noted on MRI. Incision was carried deep to level of bone at the level of the interphalangeal joint. There is noted to be evidence of bone infection and necrosis at the interphalangeal joint. Upon sharp debridement of the nonviable soft tissue at the dorsal aspect of the toe, it was decided to perform the toe amputation. A fishmouth incision was then made distal to the metatarsophalangeal joint. The toe was then disarticulated using a 15 blade at the metatarsophalangeal joint. The right first toe was then sent to pathology. The flexor and extensor tendons were excised proximally to the joint to prevent any further spread of soft tissue infection. All remaining nonviable soft tissue was sharply excised using a 15 blade and curette. The first metatarsal head appeared viable and healthy. The wound was then irrigated with 3 L of normal saline using cysto tubing. The tourniquet was then released and proper hyperemic response was noted to the amputation stump and remaining digits. Bleeding vessels were then cauterized using Bovie. The subcutaneous tissue was reapproximated using 3-0 Vicryl and the skin was reapproximated under minimal tension using 3-0 nylon. A dry, sterile dressing was then applied, which consisted of: xeroform, 4x4's, Kerlix fluffs, ABDs, and Kerlix roll with MAXIMO wrap. A sign-out was performed. The patient tolerated anesthesia and the procedure well, and was transferred to PAC-U with vital signs stable and vascular status intact to the right lower extremity. Needle and sponge counts were correct X 2 at the end of the case. Dr. Florencio Stuart was present, scrubbed, and participated in all vital aspects of the procedure. After a brief stay in PAC-U, the patient will be admitted back to the floor for continued monitoring. We will follow up on culture results from the amputated toe and he will likely discharge on PO antibiotics as there is low concern for any remaining infected bone after the amputation. 01/28/19 06:44
[2019-01-27] MEDS ORDERED: Naloxone 0.4 MG/ML INJ IVP PRN (19:28)
[2019-01-27] MEDS ORDERED: Dextrose Gel 15 GM/37.5 ML TUBE PO PRN ×2 (19:28)
[2019-01-27] MEDS ORDERED: D5% in Water 1,000 ML IVC PRN (19:28)
[2019-01-27] MEDS ORDERED: *HR* Dextrose 50 % in Water (Syg) 50 ML SYRINGE IVP PRN (19:28)
--- NOTE | 2019-01-27 19:40 | Anesthesia Evaluation Post Op ---
Date of Encounter: 01/27/19 Time of Encounter: 19:39 - Vital Signs Vital Signs: Vital Signs/O2 Sat, Most Current Temp Pulse Resp BP Pulse Ox 97.9 F 83 16 131/81 94 01/27/19 19:30 01/27/19 19:30 01/27/19 19:30 01/27/19 19:30 01/27/19 19:30 - Lungs Lungs: Clear Ascult./Percussion - Airway Airway: Non-obstructed - Mental Status Mental Status: Baseline Status - Pain Pain Scale: 0 Pain Scale used: Numeric (1 - 10) - Nausea Vomiting Nausea Vomiting: Not Present - Hydration Hydration: NPO - Discharge PostOp Status: Transfer Patient to floor
[2019-01-28] MEDS: *HR* Heparin 5,000 UNIT/ML VIAL SQ SCH ×3 (05:23→20:36)
[2019-01-28] MEDS: Cefepime HCl 2,000 MG in Water for inj. (sterile) 20 ML IVP SCH ×2 (05:25→17:29)
[2019-01-28 05:38] LABS: Basophils # 0.1 K/mcL (0.0-0.2); Basophils % 0.5 %; Eosinophils # 0.2 K/mcL (0.0-0.6); Hematocrit 40.2 % (37.5-50.1); Hemoglobin 13.6 g/dL (12.9-16.9); Lymphocytes # 0.9 K/mcL (0.6-4.6); Lymphocytes % 10.1 %; Mean Corpuscular HGB Conc 33.8 g/dL (31.6-35.5); Mean Corpuscular Hemoglobin 30.3 pg (28.0-33.3); Mean Corpuscular Volume 89.5 fL (83.0-100.0); Mean Platelet Volume 10.6 fL (9.4-12.4); Monocytes # 1.4 K/mcL (0.0-1.3); Monocytes % 15.2 %; Neutrophils # 6.6 K/mcL (1.6-8.9); Platelet Count 351 K/mcL (140-400); Red Blood Count 4.49 M/mcL (4.19-5.50); Red Cell Distribution Width 12.4 % (11.5-14.5); Segmented Neutrophils % 71.2 %; White Blood Count 9.2 K/mcL (4.3-11.1)
[2019-01-28 05:57] LABS: Calcium 8.5 mg/dL (8.6-10.3); Potassium 4.1 mEq/L (3.5-5.1)
--- NOTE | 2019-01-28 08:08 | Podiatry Progress Note ---
Date of Encounter: 01/28/19 Time of Encounter: 08:06 - Assessment and Plan (1) Toe osteomyelitis, right Current Visit: Yes Status: Acute Patient progressing well on POV 1. Dressing to be changed tomorrow. Low concern for remaining bone infection. Can likely discharge on PO antibiotics. Will discuss with ID prior to discharge. WBAT with heel touch using orthowedge shoe. Subjective Principal diagnosis: right 1st toe infection Interval history: Patient progressing well s/p right 1st toe amputation. Dressing clean, dry, intact. No signs of DVT or worsening infection. He denies pain, n/v/f/c. Objective - Vital Signs Vital Signs: Vital Signs Temp Pulse Resp BP Pulse Ox 01/28/19 06:31 98.7 F 86 16 144/87 95 01/28/19 04:01 98.5 F 92 16 147/81 95 01/27/19 22:59 97.9 F 67 16 106/61 92 01/27/19 22:30 97.6 F 77 16 108/69 98 01/27/19 21:28 97.4 F L 86 16 107/65 95 01/27/19 20:30 97.5 F L 88 14 117/72 95 01/27/19 20:00 98.9 F 86 16 148/88 94 01/27/19 19:30 97.9 F 83 16 131/81 94 01/27/19 14:00 98 F 86 18 117/68 96 01/27/19 10:46 98.1 F 90 16 114/69 94 01/27/19 08:58 129/76 Intake and Output 01/27/19 01/28/19 01/28/19 23:59 07:59 15:59 Intake Total 20 / 20 Output Total Balance Intake: IV Fluids 40 20 / 20 Maxipime 2,000 MG In Water for 20 20 / 20 inj. (sterile) 20 ML @ 300 mls/ hr IVP Q12HR [facility] Rx#:[id number] Output: Estimated Blood Loss Other: Weight 102.2 kg Blood Glucose* 191 195 Patient Weight 01/28/19 23:59 Weight 102.2 kg - Exam Exam: Alert, oriented x3, no acute distress Dressing clean, dry, intact. No streaking redness. Able to actively move all remaining toes on right. Subjective numbness in toes. No pain with compression of calf. - Lab Result Diagrams: 01/28/19 05:00 01/28/19 05:00 Labs: Abnormal lab results Monocytes # 1.4 K/mcL (0.0-1.3) H 01/28/19 05:00 ESR 48 mm/hr (0-10) H 01/26/19 16:10 Sodium 135 mEq/L (136-145) L 01/27/19 05:13 BUN 29 mg/dL (6-20) H 01/28/19 05:00 Creatinine 1.79 mg/dL (0.70-1.30) H 01/28/19 05:00 Est GFR ( Amer) 49 (> 60) L 01/28/19 05:00 Est GFR (Non-Af Amer) 40 (> 60) L 01/28/19 05:00 Glucose 248 mg/dL (70-105) H 01/28/19 05:00 POC Glucose 113 mg/dL (70-99) H 01/26/19 20:22 Hemoglobin A1c 8.5 % (-5.6) H 01/27/19 05:13 Calcium 8.5 mg/dL (8.6-10.3) L 01/28/19 05:00 C-Reactive Protein 92 mg/L (Less than 10) H 01/26/19 16:10 Urine Protein 100 mg/dL (Neg-Trace) H 01/27/19 16:58 Ur Squamous Epith Cells Many per lpf (None-Few) H 01/27/19 16:58 Protein/Creatinin Ratio 1.26 mg/mg (0.00-0.20) H 01/27/19 16:58 Urine Total Protein 169 mg/dL (1-14) H 01/27/19 16:58 Consult Discharge Plan - Plan Additional Instructions: Follow up with Dr. Florencio Stuart 1 week after discharge. WBAT in orthowedge surgical shoe. Dressing to remain intact until follow up appointment. Referrals: Odalis Monroe, [employer] [Primary Care Provider] -
[2019-01-28] MEDS: BuPROPion SR (12 HR) 150 MG TABLET PO SCH ×2 (08:36→20:36)
[2019-01-28] MEDS: Insulin DETEMIR 100 UNIT/ML X5UNITS SQ SCH (08:37)
[2019-01-28] MEDS: Insulin LISPRO 300 UNITS/3 ML VIAL SQ SCH ×3 (08:37→17:24)
[2019-01-28] MEDS ORDERED: Famotidine 20 MG TABLET PO SCH (09:00)
--- NOTE | 2019-01-28 09:50 | Nephrology Progress Note ---
Date of Encounter: 01/28/19 Time of Encounter: 09:48 - Assessment and Plan (1) Acute kidney injury superimposed on chronic kidney disease Current Visit: Yes Status: Acute On patient's previous admissions he has had a diminished GFR ranging from 40-48. Patient denies having a tire servicer that he follows GFR is slightly reduced from previous admission in 2018 now down to 33 Creatinine/BUN of 2.13 and 38, improved to 1.79 and 29 which appears close to t he patient's baseline Diminished renal function could be cordage sales representative of progression of underlying CKD since last visit versus Acute on chronic Kidney failure -UA with protein of 169, but negative for casts or infection -Urine protein/creatinine ratio of 1.26, suggestive of diabetic nephropathy -Complements C3 and C4 WNL -Awaiting results of electrophoresis serum and urine and LEANNE -renal dosing of medications -avoid nephrotoxins -Encourage oral intake and renal diet once no longer NPO following surgery (2) Osteomyelitis Current Visit: Yes Status: Acute Surgery by podiatry on 01/27/19 Qualifiers: Osteomyelitis type: unspecified type Osteomyelitis location: foot Laterality: right Qualified Code(s): M86.9 - Osteomyelitis, unspecified (3) Diabetes mellitus Current Visit: Yes Status: Chronic Defer to primary team Qualifiers: Diabetes mellitus type: type 2 Diabetes mellitus care home insulin use: without self pay collector use Diabetes mellitus complication status: with skin complications Diabetes mellitus complication detail: with foot ulcer Qualified Code(s): E11.621 - Type 2 diabetes mellitus with foot ulcer; L97.509 - Non-pressure chronic ulcer of other part of unspecified foot with unspecified severity Subjective Principal diagnosis: right 1st toe infection Interval history: Patient resting comfortably in bed upon entering the room. Patient states he is feeling great and feels much better than he did when he came in. Patient says the surgery went well and the infection was taken out. Patient denies nausea, vomiting, diarrhea, chest pain, shortness breath, abdominal pain, fever, chills, or pain with urination Objective - Vital Signs Vital signs: Vital Signs Temp Pulse Resp BP Pulse Ox 01/28/19 06:31 98.7 F 86 16 144/87 95 01/28/19 04:01 98.5 F 92 16 147/81 95 01/27/19 22:59 97.9 F 67 16 106/61 92 01/27/19 22:30 97.6 F 77 16 108/69 98 01/27/19 21:28 97.4 F L 86 16 107/65 95 01/27/19 20:30 97.5 F L 88 14 117/72 95 01/27/19 20:00 98.9 F 86 16 148/88 94 01/27/19 19:30 97.9 F 83 16 131/81 94 01/27/19 14:00 98 F 86 18 117/68 96 01/27/19 10:46 98.1 F 90 16 114/69 94 Intake and Output 01/27/19 01/28/19 01/28/19 23:59 07:59 15:59 Intake Total Output Total Balance Intake: IV Fluids Maxipime 2,000 MG In Water for inj. (sterile) 20 ML @ 300 mls/ hr IVP Q12HR [facility] Rx#:[id number] Output: Estimated Blood Loss Other: Weight 102.2 kg Blood Glucose* 191 195 Patient Weight 01/28/19 23:59 Weight 102.2 kg - General Appearance General appearance: Present: well-developed, well-nourished EENT: Present: mucous membranes moist, hearing intact Neck: Present: no JVD, supple Respiratory: Present: no kyphosis, clear Cardiology: Present: no edema, regular rate, regular rhythm Gastrointestinal: Present: normoactive bowel sounds, no tenderness, no guarding Integumentary: Present: no rash, warm and dry Neurologic: Present: no focal deficit, alert and oriented x3 Musculoskeletal: Present: warmth (Left foot with great toe amputation. Right foot in boot with dressings over recent surgical site.) Psychiatric: Present: mood/affect appropriate, cooperative - Lab 01/28/19 05:00 01/28/19 05:00 Most recent lab results 01/28/19 05:00 Calcium 8.5 L Consult Discharge Plan - Plan Additional Instructions: Follow up with Dr. Florecnio Stuart 1 week after discharge. WBAT in orthowedge surgical shoe. Dressing to remain intact until follow up appointment. Referrals: Odalis Monroe, [employer] [Primary Care Provider] -
[2019-01-28] MEDS: 0.9 % Sodium Chloride 1,000 ML IVC SCH ×2 (11:54→20:37)
--- NOTE | 2019-01-28 12:20 | Infectious Disease Consult ---
Infectious Disease-Consult - Encounter Date/Time Date of Encounter: 01/28/19 Time of Encounter: 12:20 - Data of Consult Patient: new to practice Reason for consult: Right foot osteomyelitis Consult date: 01/28/19 Requesting Physician: Lio Rivera MD Primary Care Provider: Odalis Monroe COMPANY MANAGER - HPI HPI: Mr. Barth is a 53-year-old male with a past medical history of diabetes, hyperlipidemia, and hypertension and remote history of left great toe a vacation. The patient was admitted to the hospital 01/26/19 for ostium myelitis of the right first toe. We are consulted 01/28/19 for further workup and tr eatment recommendations for right great toe osteomyelitis. Briefly, the patient is a 53-year-old male with past medical history as stated above. Patient presented to the emergency department with worsening right great toe ulcer. Upon arrival, he was afebrile. He was tachycardic, but was otherwise hemodynamically stable. He had a white count of 9. Serum creatinine was elevated at 1.96. ESR was 48 with a CRP of 92. He does CT of the right foot that showed findings consistent with ostium myelitis the first digit. He was started empirically on IV cefepime and clindamycin and was admitted to the hospital for further evaluation. Since admission, the patient has undergone an MRI that showed osteomyelitis of the first proximal and distal phalanx as well as an abscess which is phlegmon at the first interphalangeal joint. He was evaluated by nephrology to assist with this acute kidney injury. He was evaluated by podiatry and was taken to the operating room 01/27/19 where he underwent right first toe I&D and right first toe amputation at the metatarsal joint. Intraoperative pathology specimens are pending. No cultures were done. Today, the patient's white blood cell count remains normal. He has been afebrile hemodynamically stable. Currently, he is on IV cefepime. We have been asked to evaluate and make further recommendations. During my exam today, the patient states that he has had an ulcer to the right great toe for the past 3 months. He states the ulcer originally developed as a blister from poor fitting shoe and then eventually eroded into an ulcer. He saw Dr. Salinas a couple of times in the wound clinic, but missed his last appointment. He states about a month ago began to swell. Last Friday he continued to swell and he was seen in urgent care and placed on oral doxycycline. He failed to have improvement in his symptoms and on Friday when he woke up the toe was markedly more red and swollen and tight. He presented to the ER for evaluation at that point. He states he had some serous drainage from the wound up until yesterday and before surgery he started having purulent green foul-smelling drainage. He reports subjective fevers and chills a couple of days prior to admission. Denies any headache or neck pain. Denies chest pain, shortness of breath, or cough. Denies nausea, vomiting, diarrhea, or constipation. Reports a poor appetite prior to surgery, but states he is back to normal. Denies abdominal pain or urinary complaints. Denies oral thrush or skin rashes. The patient lives at home with his and 2 children. He does have a dog, but denies any bites or scratches. Denies tobacco, alcohol, or illicit drug use. Denies chronic infectious diseases. Denies recent travel outside the [facility]. Denies any exposure to water except when bathing or showering. He has an allergy listed to ciprofloxacin. She states at one point he took the medication at the same time he had a head injury/concussion and he developed some lightheadedness and syncope. Since then, he has taken the Cipro without a reaction. We will ask pharmacy to remove the Cipro from the allergy as it appears his previous symptoms were more likely related to his head injury since he has taken the medication without reaction since then. - ROS Review of Systems: All systems reviewed and no additional remarkable complaints except as stated. - Results CBC & Chem 7: 01/28/19 05:00 01/29/19 04:44 - Exam Vitals: Temp Pulse Resp BP Pulse Ox 98.7 F 86 16 144/87 95 01/28/19 06:31 01/28/19 06:31 01/28/19 06:31 01/28/19 06:31 01/28/19 06:31 Exam: Head: Atraumatic, normal inspection, normocephalic. Eye: EOMI, PERRLA, no scleral icterus noted. ENT: Mucous membranes moist. No odontogenic infection noted. Neck: Normal inspection, no meningismus. Respiratory: Clear to auscultation. No rales, respiratory distress, rhonchi, or wheezes noted. Cardiovascular: Regular rate and rhythm, S1 and S2 audible. No murmurs, rubs, or gallops. GI: Soft, nondistended, normal bowel sounds. Non-tender. Extremities: No joint swelling, pedal edema, or tenderness noted. Right foot dressing C/D/I. Back: Normal inspection. No vertebral tenderness noted. Neurological: Alert, oriented 3, no focal deficits. Psychiatric: normal affect, normal mood. Skin: Dry, intact, warm. Normal color. No rashes. BuPROPion SR (12 HR) [Wellbutrin SR] 300 mg PO QAM 01/26/19 [History] Clopidogrel [Plavix] 75 mg PO DAILY 01/26/19 [History] Gemfibrozil 600 mg PO DAILY 01/26/19 [History] Insulin Glargine,Hum.rec.anlog [Basaglar Kwikpen U-100] 50 - 60 units SQ QPM 01/26/19 [History] Losartan [Cozaar] 25 mg PO DAILY 01/26/19 [History] Paroxetine [Paxil] 20 mg PO QAM 01/26/19 [History] Ranitidine HCl [Zantac] 300 mg PO QPM 01/26/19 [History] Rosuvastatin [Crestor] 40 mg PO HS 01/26/19 [History] glyBURIDE [GlyBURIDE] 10 mg PO QAM 01/26/19 [History] Cholecalciferol (Vitamin D3) [Vitamin D3] 1,000 units PO DAILY 01/27/19 [History] Metformin HCl 1,000 mg PO QAM 01/27/19 [History] [place]-3/Dha/Epa/Fish Oil [Fish Oil 500 mg Softgel] 1,500 mg PO DAILY 01/27/19 [History] Doxycycline Hyclate 100 mg PO BID 15 Days #30 tab 01/29/19 [Rx] Levofloxacin [Levaquin] 750 mg PO DAILY 15 Days #15 tablet 01/29/19 [Rx] Allergy/AdvReac Type Severity Reaction Status Date / Time pioglitazone [From Actos] AdvReac See Verified 01/27/19 22:04 Comments - Assessment and Plan (1) Osteomyelitis Status: Acute Location: Right foot great toe. Causative organism: Unclear. No pre-op or intra-op cultures were obtained. CT of the right foot showed possible OM of the right 1st toe. MRI showed OM of the 1st proximal and distal phalanges with abscess vs. hlegmon at the 1st IP joint. ESR 48, CRP 92. Podiatry consulted. Status post rigt 1st toe I & D and right 1st toe amputation at the MT joint. No intra-op cultures were done. Pathology is pending. Currently on Cefepime. Qualifiers: Osteomyelitis type: unspecified type Osteomyelitis location: foot Laterality: right Qualified Code(s): M86.9 - Osteomyelitis, unspecified SNOMED Code(s): 95380589 (2) Cellulitis of right toe Status: Acute Location: Right great toe. Causative organism: Unclear. Likely secondary to chronic diabetic foot ulcer. Purulent. Status post amputation. Currently on IV cefepime. SNOMED Code(s): 34865931 (3) Acute kidney injury Status: Acute Serum creatinine elevated on admission. Improved. Nephrology consulted. Dose-adjust medications and avoid nephrotoxins. SNOMED Code(s): 89052999, 80504833 (4) Diabetes mellitus Status: Chronic Hemoglobin A1c 8.5%. Recommend aggressive glucose monitoring and control to promote wound healing and prevent reinfection. Management per the primary team. Qualifiers: Diabetes mellitus type: type 2 Diabetes mellitus senior care insulin use: without senior care use Diabetes mellitus complication status: with skin complications Diabetes mellitus complication detail: with foot ulcer Qualified Code(s): E11.621 - Type 2 diabetes mellitus with foot ulcer; L97.509 - Non-pressure chronic ulcer of other part of unspecified foot with unspecified severity SNOMED Code(s): 17726491 - Recommendations Recommendations: Await intra-op path report. Wound care per the Podiatry team. Per Podiatry, all infected tissue was removed and the patient can likely discharge on PO antibiotics. Start doxycycline 100mg PO BID. Continue cefepime 2 grams IV Q12H for now. Duration of treatment depends on the clinical picture. Monitor renal function and dose-adjust antibiotics. Past Med Surg Social Fam HX - Past Medical History Attestation: Yes The following information was validated with the patient. Source: patient, old records reviewed, nursing notes reviewed Medical history: diabetes, hyperlipidemia, hypertension Additional medical history: Diabetes Psychiatric history: no psych history - Past Surgical History Additional surgical history: Left toe amputation - Social History Smoking Status: Former smoker Smokeless Tobacco Status: Yes Alcohol use: none Drug use: none Occupational status: employed Current living situation: Home, With Family Activity Level: Independent ambulation Recent Out of Country Travel Within the Last 8 Weeks: No Exposure or Possible Exposure to Illness During Travel: No - Family History Mother Living Status: Still Living Hx Family Cancer: Yes Hx Family Endocrine Disorder: Yes Father Living Status: Still Living Hx Family Cardiac Disorders: Yes Consult Discharge Plan - Plan Additional Instructions: Follow up with Dr. Florencio Stuart 1 week after discharge. WBAT in orthowedge surgical shoe. Dressing to remain intact until follow up appointment. Referrals: Florencio Stuart DPM [Partnered Physician] - 02/05/19 8:30 am Odalis Monroe CNP [Primary Care Provider] - 03/03/19 8:00 am Prescriptions: Doxycycline Hyclate 100 mg PO BID 15 Days #30 tab Transmission Status: Received by [facility] Levofloxacin [Levaquin] 750 mg PO DAILY 15 Days #15 tablet Transmission Status: Received by [facility] - Attending Attestation I have personally performed a face to face evaluation on this patient. I have reviewed and agree with the care plan. This is an addendum to original report dictated by Shanita Gibson CNP. Please refer to Shanita's note for full detail. Agree with above history of present illness, review of system and physical exam findings. Assessment and plan: Osteomyelitis of the right great toe causative organism not clear status post I&D and first toe amputation at the MTP joint line cellulitis of the right total Acute kidney injury Diabetes mellitus type 1 poorly controlled hemoglobin A1c 8.5 Recommendation Await Intra-Op cultures Await intraoperative pathology Continue cefepime Start doxycycline empirically Duration of treatment depends on clinical picture we will have to talk to podiatry Monitor labs and for drug toxicity
--- NOTE | 2019-01-28 14:52 | Internal Med Progress Note ---
Hospitalist Progress Note - Encounter Date of Encounter: 01/28/19 Time of Encounter: 14:50 - Subjective Interval History: Patient was seen and examined at bedside this morning. Patient is status post right hallux amputation postoperative day one. Patient reports mild pain at the operative site. Denies any fever and chills. Denies any chest pain, palpation, and difficulty in breathing. - Exam Vitals: Temp Pulse Resp BP Pulse Ox 97.8 F 84 16 159/79 99 01/28/19 11:40 01/28/19 11:40 01/28/19 11:40 01/28/19 11:40 01/28/19 11:40 Exam: GENERAL: Not in distress. Alert and Oriented HEENT: EOMI, PERRLA MOUTH: Moist oral mucosa NECK:No JVD, No lymph nodes. CHEST AND LUNGS: Normal breath sounds, no wheezes or crackles HEART: S1 and S2 normal, no murmurs ABDOMEN: Soft, nontender, no organomegaly SKIN: Normal color, no rashes, no lesions EXTREMITIES: Left toe stump is clean, right toe dressing is palced NEUROLOGICAL: Normal cognition, normal motor and sensory exam. - Assessment and Plan (1) Toe osteomyelitis, right Current Visit: Yes Status: Acute Assessment and Plan: Patient presented with a right great toe infection. MRI showed osteomyelitis. Podiatry was consulted. Patient is currently status post right hallux amputation postoperative day one. Continue IV hydration Continue IV cefepime. Infectious disease on consult for antibiotic recommendation on discharge. Plan podiatry patient had amputation done and he can be discharged on oral antibiotic. (2) Cellulitis of right toe Current Visit: Yes Status: Acute Assessment and Plan: Antibiotics as above (3) Acute kidney injury superimposed on chronic kidney disease Current Visit: Yes Status: Acute Assessment and Plan: Creatinine is down trending today. Morning creating down trended to 1.73 from 2.13 yesterday. We will continue IV hydration. Avoid nephrotoxin. (4) Diabetes mellitus Current Visit: Yes Status: Chronic Assessment and Plan: Accuchecks Sliding scale Will cover with home basal insulin dose. (5) DVT prophylaxis Current Visit: Yes Status: Acute Assessment and Plan: Subcutaneous heparin - Time Spent with Patient Total time spent is greater than 50% in coordination of care (as documented) at patient's floor/unit and/or counseling patient: 25 - 35 minutes Plan of Care Discussed with: patient Internal Medicine: Result - Labs CBC & Chem 7: 01/28/19 05:00 01/28/19 05:00 Labs: Short CBC 01/28/19 Range/Units 05:00 WBC 9.2 (4.3-11.1) K/mcL Hgb 13.6 (12.9-16.9) g/dL Hct 40.2 (37.5-50.1) % Plt Count 351 (140-400) K/mcL Neutrophils # 6.6 (1.6-8.9) K/mcL BMP 01/28/19 05:00 Sodium 138 Potassium 4.1 Chloride 103 Carbon Dioxide 25 BUN 29 H Creatinine 1.79 H Glucose 248 H Calcium 8.5 L Urine 01/27/19 Range/Units 16:58 Urine Color Yellow (Yellow) Urine Clarity Clear (Clear) Urine pH 5.5 (5.0-8.0) pH Units Ur Specific [place] 1.025 (1.010-1.025) Urine Protein 100 H (Neg-Trace) mg/dL Urine Glucose (UA) Normal (Normal) mg/dL Consult Discharge Plan - Plan Additional Instructions: Follow up with Dr. Florencio Stuart 1 week after discharge. WBAT in orthowedge surgical shoe. Dressing to remain intact until follow up appointment. Referrals: Odalis Monroe, [facility] [Primary Care Provider] - (4) Diabetes mellitus Qualifiers: Diabetes mellitus type: type 2 Diabetes mellitus residential insulin use: without residential use Diabetes mellitus complication status: with skin complications Diabetes mellitus complication detail: with foot ulcer Qualified Code(s): E11.621 - Type 2 diabetes mellitus with foot ulcer; L97.509 - Non- pressure chronic ulcer of other part of unspecified foot with unspecified severity
[2019-01-28] MEDS: Doxycycline 100 MG CAPSULE PO SCH (17:29)
[2019-01-29] MEDS: *HR* Heparin 5,000 UNIT/ML VIAL SQ SCH (05:38)
[2019-01-29] MEDS: Doxycycline 100 MG CAPSULE PO SCH (05:38)
[2019-01-29] MEDS: Cefepime HCl 2,000 MG in Water for inj. (sterile) 20 ML IVP SCH (05:38)
[2019-01-29 05:39] LABS: Calcium 8.5 mg/dL (8.6-10.3); Potassium 3.8 mEq/L (3.5-5.1)
--- NOTE | 2019-01-29 07:38 | Event Note ---
Date of Encounter: 01/29/19 Time of Encounter: 07:36 - Nephrology Event Note Nephrology chart update This patient's acute kidney injury on chronic kidney disease stage III has nicely improved and he appears to be now back to his baseline. I will politely sign off at this time, and I recommended the patient follow up with Dr. Dsouza who originally consulted on him. He should have a basic metabolic panel checked in about 1-2 weeks after discharge and a hospital follow-up in approximately 4-5 weeks, or sooner if indicated. Please feel free to call or page nephrology if any related questions. Thank you.
[2019-01-29] MEDS: BuPROPion SR (12 HR) 150 MG TABLET PO SCH (08:33)
[2019-01-29] MEDS: Insulin LISPRO 300 UNITS/3 ML VIAL SQ SCH (08:34)
[2019-01-29] MEDS ORDERED: Famotidine 20 MG TABLET PO SCH (09:00)
[2019-01-29] MEDS: Insulin DETEMIR 100 UNIT/ML X5UNITS SQ SCH (09:34)
--- NOTE | 2019-01-29 09:48 | Discharge Summary ---
- NOTES TO OUTPATIENT PROVIDER Notes to Outpatient Provider: Patient was admitted to the hospital for right hallux infection concerning for osteomyelitis. Podiatry was consulted. Patient is status post right hallux limitation. Per podiatry less concern for remaining infection after the surgery. Patient can be discharged on oral antibiotic for 2 weeks per podiatry and ID. Follow up in wound care clinic. Orders not resulted at time of discharge: Pending orders 01/27/19 14:02 LEANNE IgG DEREK rflx IFA Routine 01/27/19 16:58 Immunofixation,Urine (BJP) Routine 01/27/19 19:27 Surgical Pathology [PTH] Routine Date of Encounter: 01/29/19 Time of Encounter: 09:42 - Discharge Diagnosis (1) Toe osteomyelitis, right Priority: Primary Status: Acute (2) Cellulitis of right toe Priority: Secondary Status: Acute (3) Acute kidney injury superimposed on chronic kidney disease Priority: Secondary Status: Acute (4) Diabetes mellitus Priority: Secondary Status: Chronic Qualifiers: Diabetes mellitus type: type 2 Diabetes mellitus exterminator helper insulin use: without custodial use Diabetes mellitus complication status: with skin complications Diabetes mellitus complication detail: with foot ulcer Qualified Code(s): E11.621 - Type 2 diabetes mellitus with foot ulcer; L97.509 - Non-pressure chronic ulcer of other part of unspecified foot with unspecified severity (5) DVT prophylaxis Priority: Secondary Status: Acute Hospital course: Mr. Barth is a 53 year old male P was admitted to the hospital for right hallux infection concerning for osteomyelitis. Podiatry was consulted. Patient is status post right hallux limitation. Per podiatry less concern for remaining infection after the surgery. Patient can be discharged on oral antibiotic for 2 weeks per podiatry and ID. Follow up in wound care clinic. Discharge discussed with: patient, family, nurse, bus info consultant - Time Spent with Patient Total time spent providing and/or coordinating discharge services: 35 Time spent: Greater than 30 minutes - Discharge Medications Prescriptions: New Levofloxacin [Levaquin] 750 mg PO DAILY 15 Days #15 tablet Continued BuPROPion SR (12 HR) [Wellbutrin SR] 300 mg PO QAM Rosuvastatin [Crestor] 40 mg PO HS Losartan [Cozaar] 25 mg PO DAILY Paroxetine [Paxil] 20 mg PO QAM Ranitidine HCl [Zantac] 300 mg PO QPM Insulin Glargine,Hum.rec.anlog [Basaglar Kwikpen U-100] 50 - 60 units SQ QPM glyBURIDE [GlyBURIDE] 10 mg PO QAM Gemfibrozil 600 mg PO DAILY Clopidogrel [Plavix] 75 mg PO DAILY Cholecalciferol (Vitamin D3) [Vitamin D3] 1,000 units PO DAILY Metformin HCl 1,000 mg PO QAM [place]-3/Dha/Epa/Fish Oil [Fish Oil 500 mg Softgel] 1,500 mg PO DAILY Doxycycline Hyclate 100 mg PO BID 15 Days #30 tab Home Medications: BuPROPion SR (12 HR) [Wellbutrin SR] 300 mg PO QAM 01/26/19 [History] Clopidogrel [Plavix] 75 mg PO DAILY 01/26/19 [History] Gemfibrozil 600 mg PO DAILY 01/26/19 [History] Insulin Glargine,Hum.rec.anlog [Basaglar Kwikpen U-100] 50 - 60 units SQ QPM 01/26/19 [History] Losartan [Cozaar] 25 mg PO DAILY 01/26/19 [History] Paroxetine [Paxil] 20 mg PO QAM 01/26/19 [History] Ranitidine HCl [Zantac] 300 mg PO QPM 01/26/19 [History] Rosuvastatin [Crestor] 40 mg PO HS 01/26/19 [History] glyBURIDE [GlyBURIDE] 10 mg PO QAM 01/26/19 [History] Cholecalciferol (Vitamin D3) [Vitamin D3] 1,000 units PO DAILY 01/27/19 [History] Metformin HCl 1,000 mg PO QAM 01/27/19 [History] [place]-3/Dha/Epa/Fish Oil [Fish Oil 500 mg Softgel] 1,500 mg PO DAILY 01/27/19 [History] Doxycycline Hyclate 100 mg PO BID 15 Days #30 tab 01/29/19 [Rx] Levofloxacin [Levaquin] 750 mg PO DAILY 15 Days #15 tablet 01/29/19 [Rx] Allergies/Adverse Reactions: Allergy/AdvReac Type Severity Reaction Status Date / Time pioglitazone [From Actos] AdvReac See Verified 01/27/19 22:04 Comments Date of admission: 01/27/19 13:49 Primary care physician: Odalis Monroe CNP Consults: 01/26/19 16:42 Consult to Podiatry [CONS] Stat Consulting Provider: Podiatry [facility] Reason for Consult: right great toe infection Call Completed: Yes 01/26/19 23:40 Consult to Nephrology [CONS] Routine Consulting Provider: [facility] [place]LIZ/[facility] Reason for Consult: ARACELI on CKD 3 B Call Completed: No 01/27/19 16:14 Consult to Infectious Diseases [CONS] Stat Consulting Provider: Infectious [facility] [place] Reason for Consult: Osteomyelitis of right Hallux Call Completed: Yes Discharging clinician: Lio Rivera - Constitutional Vitals: Temp Pulse Resp BP Pulse Ox 97.5 F L 69 16 145/74 94 01/29/19 07:07 01/29/19 07:07 01/29/19 07:07 01/29/19 07:07 01/29/19 07:07 General appearance: Present: cooperative, A&O X 3 Exam: GENERAL: Not in distress. Alert and Oriented HEENT: EOMI, PERRLA MOUTH: Moist oral mucosa NECK:No JVD, No lymph nodes. CHEST AND LUNGS: Normal breath sounds, no wheezes or crackles HEART: S1 and S2 normal, no murmurs ABDOMEN: Soft, nontender, no organomegaly SKIN: Normal color, no rashes, no lesions EXTREMITIES: Left toe stump is clean, right toe dressing is palced NEUROLOGICAL: Normal cognition, normal motor and sensory exam. - Patient Status Disposition: Home, Self-Care Condition: Fair Functional capacity at discharge: uses cane/walker Overall status at discharge: patient is progressing back to baseline - Discharge Instructions Follow Up With: Odalis Monroe CNP [Primary Care Provider] - Additional Instructions: Follow up with Dr. Florencio Stuart 1 week after discharge. WBAT in orthowedge surgical shoe. Dressing to remain intact until follow up appointment. - Diet and Activity Activity: increase activity as tolerated Diet: diabetic diet, low salt diet
--- NOTE | 2019-01-29 11:20 | Infectious Disease Progress No ---
ID Progress Note Date of Encounter: 01/29/19 Time of Encounter: 11:18 - Subjective Subjective: Patient seen and examined. No acute events overnight. Patient states he feels great and wants to go home. Denies fevers, chills, rigors. Denies chest pain, shortness of breath, or cough. Denies nausea, vomiting, diarrhea, constipation. Denies abdominal pain or urinary complaints. Denies oral thrush or skin rashes. Denies pain at the surgical site. - Objective CBC & Chem 7: 01/28/19 05:00 01/29/19 04:44 - Exam Vitals: Temp Pulse Resp BP Pulse Ox 97.5 F L 69 16 145/74 94 01/29/19 07:07 01/29/19 07:07 01/29/19 07:07 01/29/19 07:07 01/29/19 07:07 Exam: Head: Atraumatic, normal inspection, normocephalic. Eye: EOMI, PERRLA, no scleral icterus noted. ENT: Mucous membranes moist. No odontogenic infection noted. Neck: Normal inspection, no meningismus. Respiratory: Clear to auscultation. No rales, respiratory distress, rhonchi, or wheezes noted. Cardiovascular: Regular rate and rhythm, S1 and S2 audible. No murmurs, rubs, or gallops. GI: Soft, nondistended, normal bowel sounds. Non-tender. Extremities: No joint swelling, pedal edema, or tenderness noted. Right foot dressing C/D/I. Back: Normal inspection. No vertebral tenderness noted. Neurological: Alert, oriented 3, no focal deficits. Psychiatric: normal affect, normal mood. Skin: Dry, intact, warm. Normal color. No rashes. - Assessment and Plan (1) Osteomyelitis Status: Acute Location: Right foot great toe. Causative organism: Unclear. No pre-op or intra-op cultures were obtained. CT of the right foot showed possible OM of the right 1st toe. MRI showed OM of the 1st proximal and distal phalanges with abscess vs. hlegmon at the 1st IP joint. ESR 48, CRP 92. Podiatry consulted. Status post rigt 1st toe I & D and right 1st toe amputation at the MT joint. No intra-op cultures were done. Pathology is pending. Currently on Cefepime and oral doxycycline. Qualifiers: Osteomyelitis type: unspecified type Osteomyelitis location: foot Lateral ity: right Qualified Code(s): M86.9 - Osteomyelitis, unspecified SNOMED Code(s): 65015420 (2) Cellulitis of right toe Status: Acute Location: Right great toe. Causative organism: Unclear. Likely secondary to chronic diabetic foot ulcer. Purulent. Status post amputation. Currently on IV cefepime and oral doxycycline. SNOMED Code(s): 17637839 (3) Acute kidney injury Status: Acute Serum creatinine elevated on admission. Improved. Nephrology consulted. Dose-adjust medications and avoid nephrotoxins. SNOMED Code(s): 96284416, 72111041 (4) Diabetes mellitus Status: Chronic Hemoglobin A1c 8.5%. Recommend aggressive glucose monitoring and control to promote wound healing and prevent reinfection. Management per the primary team. Qualifiers: Diabetes mellitus type: type 2 Diabetes mellitus terminal superintendent insulin use: without terminal superintendent use Diabetes mellitus complication status: with skin complications Diabetes mellitus complication detail: with foot ulcer Qualified Code(s): E11.621 - Type 2 diabetes mellitus with foot ulcer; L97.509 - Non-pressure chronic ulcer of other part of unspecified foot with unspecified severity SNOMED Code(s): 86474128 (5) Chronic kidney disease Status: Acute SNOMED Code(s): 445474318 - Recommendations Recommendations: Await intra-op path report. Wound care per the Podiatry team. Per Podiatry, all infected tissue was removed and the patient can likely discharge on PO antibiotics. Continue doxycycline 100mg PO BID. Continue cefepime 2 grams IV Q12H for now. Duration of treatment depends on the clinical picture. Consider switching to oral Levaquin 750 mg by mouth daily and continuing oral doxycycline 100 mg by mouth twice a day complete a 14 day postop course. Treat through 02/09/19. Monitor renal function and dose-adjust antibiotics. Consult Discharge Plan - Plan Additional Instructions: Follow up with Dr. Florencio Stuart 1 week after discharge. WBAT in orthowedge surgical shoe. Dressing to remain intact until follow up appointment. Referrals: Florencio Stuart DPM [Partnered Physician] - 02/05/19 8:30 am Odalis Monroe LEATHER COVERER [Primary Care Provider] - 03/03/19 8:00 am Prescriptions: Doxycycline Hyclate 100 mg PO BID 15 Days #30 tab Transmission Status: Received by [facility] Levofloxacin [Levaquin] 750 mg PO DAILY 15 Days #15 tablet Transmission Status: Received by [facility] - Attending Attestation I have personally performed a face to face evaluation on this patient. I have reviewed and agree with the care plan. History and Exam by me shows: Assessment and plan: Osteomyelitis of the right great toe causative organism not clear status post I&D and first toe amputation at the MTP joint line cellulitis of the right total Acute kidney injury Diabetes mellitus type 1 poorly controlled hemoglobin A1c 8.5 Recommendation okay to d/c on levofloxacin/doxycycline duration of treatment 14 days
[2019-01-29 11:55] VITALS: BP 149/87
--- NOTE | 2019-01-29 12:35 | Podiatry Progress Note ---
Date of Encounter: 01/29/19 Time of Encounter: 10:30 - Assessment and Plan (1) Toe osteomyelitis, right Current Visit: Yes Status: Acute Assessment: -Post op day #2 right 1st toe incision and drainage below fascia and right 1st toe amputation at metatarsophalangeal joint by Dr. Stuart on 01/27/2019 -WBC 9.2 on 01/28/2019 -ESR 48, CRP 92 -CT of right foot shows evidence of erosive changes plantar aspect of the 1st digit concerning for osteomyelitis with soft tissue ulceration along the plantar medical aspect of the 1st digit and 1st digit cellulitils. No definite drainable fluid collection or sinus tract. -MRI of right foot showed evidence of osteomyelitis through the 1st proximal and distal phalanges, shallow soft tissue ulceration plantar and medical to the 1st interphalangeal joint with an underlying fluid-filled sinus tract contacting the adjacent osseous structures, and separate abscess versus phelgmon in the soft tissues dorsal and medial to the 1st interphalangeal joint. Plan: -September discharge after ID makes final antibiotic recommendations -Keep dressing dry and intact until follow up with Dr. Stuart, patient aware to call for any complications -Follow up with Dr. Stuart next week, please schedule appointment prior to discharge Dressing change: Site flushed with .9 normal saline and pat dry. Site painted with betadine and covered with adaptic, 4x4's, and Kerlix. Dressing secured with MAXIMO. Subjective Principal diagnosis: right 1st toe infection Interval history: Post op day #2 right 1st toe incision and drainage below fascia and right 1st toe amputation at metatarsophalangeal joint by Dr. Stuart on 01/27/2019. Patient is alert and oriented and no acute distress noted. Patient denies any chest pain, shortness of breath or calf pain. He denies any fever, chills, nausea, vomiting, or diarrhea. Objective - Vital Signs Vital Signs: Vital Signs Temp Pulse Resp BP Pulse Ox 01/29/19 11:54 97.5 F L 79 16 149/87 99 01/29/19 07:07 97.5 F L 69 16 145/74 94 01/29/19 03:55 98.6 F 89 17 157/84 97 01/28/19 23:07 98.2 F 85 17 168/77 96 01/28/19 20:35 97 01/28/19 20:27 98.6 F 92 16 132/75 97 01/28/19 15:40 98.4 F 90 20 144/81 96 Intake and Output 01/28/19 01/29/19 01/29/19 23:59 07:59 15:59 Intake Total 1260 / 1280 20 / 500 480 / 500 Balance 1260 / 1280 20 / 500 480 / 500 Intake: IV Fluids 1020 / 1040 20 / 20 0.9 % Sodium Chloride 1,000 ML 1000 / 1000 @ 75 mls/hr IVC .[id number] MAX Rx #:[id number] Maxipime 2,000 MG In Water for 20 / 20 inj. (sterile) 20 ML @ 300 mls/ hr IVP Q12HR MAX Rx#:[id number] Oral 240 / 240 480 / 480 Other: Meal Dinner Breakfast Percent of Meal Consumed 100% 100% # Voids 1 2 1 # Bowel Movements 1 Weight 102.5 kg Blood Glucose* 127 163 169 Patient Weight 01/29/19 23:59 Weight 102.5 kg - Exam Exam: Constitutional: Alert and oriented x 3, no acute distress noted, well nourished Vascular: 2/4 PT/DP pulses bilateral extremities, cap refill less than 3 seconds to all digits, amputation of left hallux, no pain with calf squeeze Neurological: Diminished protective sensation Dermatological: post op amputation right hallux, no streaking erythema, maceration of tissue noted to surgical wound, but minimal, edges are coapting, and sutures intact, however there does appear to be one suture that is no longer present Musculoskeletal: 5/5 muscle strength and normal muscle tone - Lab Result Diagrams: 01/28/19 05:00 01/29/19 04:44 Labs: Abnormal lab results Monocytes # 1.4 K/mcL (0.0-1.3) H 01/28/19 05:00 ESR 48 mm/hr (0-10) H 01/26/19 16:10 Sodium 135 mEq/L (136-145) L 01/29/19 04:44 BUN 24 mg/dL (6-20) H 01/29/19 04:44 Creatinine 1.72 mg/dL (0.70-1.30) H 01/29/19 04:44 Est GFR ( Amer) 51 (> 60) L 01/29/19 04:44 Est GFR (Non-Af Amer) 42 (> 60) L 01/29/19 04:44 Glucose 174 mg/dL (70-105) H 01/29/19 04:44 POC Glucose 169 mg/dL (70-99) H 01/29/19 11:36 Hemoglobin A1c 8.5 % (-5.6) H 01/27/19 05:13 Calcium 8.5 mg/dL (8.6-10.3) L 01/29/19 04:44 C-Reactive Protein 92 mg/L (Less than 10) H 01/26/19 16:10 Urine Protein 100 mg/dL (Neg-Trace) H 01/27/19 16:58 Ur Squamous Epith Cells Many per lpf (None-Few) H 01/27/19 16:58 Protein/Creatinin Ratio 1.26 mg/mg (0.00-0.20) H 01/27/19 16:58 Urine Total Protein 169 mg/dL (1-14) H 01/27/19 16:58 Consult Discharge Plan - Plan Additional Instructions: Follow up with Dr. Florencio Stuart 1 week after discharge. WBAT in orthowedge surgical shoe. Dressing to remain intact until follow up appointment. Referrals: Florencio Stuart DPM [Partnered Physician] - 02/05/19 8:30 am Odalis Monroe CNP [Primary Care Provider] - 03/03/19 8:00 am Prescriptions: Doxycycline Hyclate 100 mg PO BID 15 Days #30 tab Transmission Status: Received by PHARMACY Levofloxacin [Levaquin] 750 mg PO DAILY 15 Days #15 tablet Transmission Status: Received by PHARMACY
[2019-01-29] MEDS ORDERED: FLU Vac QV 19-20 (6Month+)/PF 0.5 ML SYRINGE IM ONE (12:55)
[2019-01-30 07:08] LABS: Urine Collection Volume RANDOM mL
[2019-01-30 10:30] LABS: ANA IgG by ELISA NONE DETECTED (None Detected)
[2019-02-01 00:45] LABS: Alpha 2 Globulin (PEP) 1.25 g/dL (0.48-1.05); Beta Globulin (PEP) 0.83 g/dL (0.48-1.10)
[2019-02-01 10:12] LABS: IFE Reflexed IFE Done
[2019-02-01 10:13] LABS: Immunoglobulin A 118 mg/dL (68-408); Immunoglobulin G 1110 mg/dL (768-1632); Immunoglobulin M 75 mg/dL (35-263)
== END 2019-01-29 13:59 | disposition home or self-care (01) | DRG 617 ==
LOC: 3NENU 12:56 → EMEROOARM 12:56 → SUATTDRO 17:44 → 3NENU 18:45
PROVIDERS: ADMIT Internal Medicine; ATTEND Family Medicine